=== PATIENT | female | born 1990 | race African-American/Black ===

== ENCOUNTER 2019-04-16 20:14 | Emergency (ER) | payer OTHER ==
[~2019-04-16] VITALS: Ht 170.2 cm; Wt 104.3 kg
--- NOTE | 2019-04-16 20:30 | NUR ---
PT PRESENTED TO THE ER WITH A C/O RT HIP/PELVIC PAIN X 1 DAY. PT IS UNDERGOING PT FOR HER RT SHOULDER AND L KNEE. PT RECEIVED PRP INJECTIONS IN THE LT KNEE TODAY. PT IS AA&O X3. PT TAKES OXICODONE FOR PAIN.
[2019-04-16 20:48] LABS: BASOPHILS % (AUTO) 0.6 % (0.0-2.0); EOSINOPHILS % (AUTO) 1.7 % (0.0-6.0); HEMATOCRIT 39 % (33-45); HEMOGLOBIN 12.9 g/dL (11.5-14.8); LYMPHOCYTES # (AUTO) 1.3 /CMM (0.8-4.8); LYMPHOCYTES % (AUTO) 21.2 % (20.0-44.0); MEAN CORPUSCULAR HGB CONC 33 g/dl (31.0-36.0); MEAN CORPUSCULAR VOLUME 89 fL (82-100); MONOCYTES # (AUTO) 0.9 /CMM (0.1-1.30); MONOCYTES % (AUTO) 14.4 % (2.0-12.0); NEUTROPHILS # (AUTO) 3.9 /CMM (1.8-8.9); NEUTROPHILS % (AUTO) 62.1 % (43.0-81.0); PLATELET COUNT (AUTO) 221 /CMM (150-450); RED BLOOD CELL COUNT(AUTO) 4.35 MIL/uL (4.0-5.2); WHITE BLOOD COUNT (AUTO) 6.3 K/uL (4.3-11.0)
--- NOTE | 2019-04-16 21:20 | NUR ---
URINE SAMPLE OBTAINED AND SENT TO LAB.
[2019-04-16 21:26] LABS: APPEARANCE,URINE Clear (CLEAR); BILIRUBIN,URINE Negative (NEGATIVE); BLOOD, URINE Negative Ery/uL (NEGATIVE); COLOR,URINE Yellow (YELLOW); KETONES,URINE Trace (NEGATIVE); LEUKOCYTE ESTERASE ,URINE Negative (NEGATIVE); NITRITE, URINE Negative (NEGATIVE); PROTEIN,URINE Negative (NEGATIVE); UGLUCOSE Negative (NEGATIVE); UROBILINOGEN,URINE 0.2 EU/dL (0.2)
[2019-04-16 21:37] LABS: ALBUMIN 3.3 g/dL (3.4-5.0); BILIRUBIN,TOTAL 0.2 mg/dL (0.2-1.0); CALCIUM, SERUM 9.2 mg/dL (8.5-10.1); CREATININE 0.9 mg/dL (0.6-1.3); POTASSIUM 3.7 mmol/L (3.5-5.1); TOTAL PROTEIN, SERUM 7.2 g/dL (6.4-8.2)
--- NOTE | 2019-04-16 21:40 | NUR ---
CALLED RADIOLOGY RE: CT.
--- NOTE | 2019-04-16 22:34 | NUR ---
CALLING SHARON RE: READ
--- NOTE | 2019-04-16 22:43 | NUR ---
CT RESULTED. DR NEWBY NOTIFIED.
--- NOTE | 2019-04-16 22:45 | NUR ---
Patient discharged to home in stable condition. Written and verbal after care instructions given. Patient verbalizes understanding of instruction AND RX. PT AMBULATED OUT WITH A SLIGHT LIMP. VSS.
[2019-04-16 23:04] VITALS: BP 132/87
== END 2019-04-16 23:04 | disposition home or self-care (01) ==
LOC: ER 20:17 → EDBD 20:17 → ER 23:04
DX: R10.31 Right lower quadrant pain (principal); Z98.890 Other specified postprocedural states
CPT/HCPCS: 36415; 80048-TC; 80076-TC; 81000-TC; 83690-TC; 84702-TC; 84703-TC; 85025-TC

== ENCOUNTER 2019-07-02 21:31 | Emergency (ER) | payer BC, OTHER ==
[~2019-07-02] VITALS: Ht 170.2 cm; Wt 104.3 kg
--- NOTE | 2019-07-02 22:30 | NUR ---
PT AAOX4. BIBSELF C/O PALPITATIONS S/P EATING 20MG THC/CBD GUMMY CANDIES X2.5HR DIRECTOR SAFETY COUNCIL. PT DENIES CP. PLACED ON MONITOR AND PULSE OX. VSS.
--- NOTE | 2019-07-02 23:52 | NUR ---
Patient discharged to home in stable condition. Written and verbal after care instructions given. Patient verbalizes understanding of instruction. Pt denies pain. VSS. No acute distress noted. Pt ambulated with steady gait.
[2019-07-02 23:53] VITALS: BP 112/72
== END 2019-07-02 23:54 | disposition home or self-care (01) ==
LOC: ER 21:33
DX: F12.90 Cannabis use, unspecified, uncomplicated (principal); G47.00 Insomnia, unspecified; R00.2 Palpitations; Z98.890 Other specified postprocedural states

== ENCOUNTER 2021-02-21 10:59 | Emergency (ER) | payer BC ==
[~2021-02-21] VITALS: Ht 170.2 cm; Wt 99.8 kg
[2021-02-21 11:32] VITALS: BP 130/76
[2021-02-21 12:45] LABS: BASOPHILS % (AUTO) 0.8 % (0.0-2.0); EOSINOPHILS % (AUTO) 1.7 % (0.0-6.0); HEMATOCRIT 41 % (33-45); HEMOGLOBIN 13.4 g/dL (11.5-14.8); LYMPHOCYTES # (AUTO) 1.7 K/uL (0.8-4.8); LYMPHOCYTES % (AUTO) 27.8 % (20.0-44.0); MEAN CORPUSCULAR HGB CONC 33 g/dl (31.0-36.0); MEAN CORPUSCULAR VOLUME 89 fL (82-100); MONOCYTES # (AUTO) 0.5 K/uL (0.1-1.30); MONOCYTES % (AUTO) 8.3 % (2.0-12.0); NEUTROPHILS # (AUTO) 3.6 K/uL (1.8-8.9); NEUTROPHILS % (AUTO) 61.4 % (43.0-81.0); PLATELET COUNT (AUTO) 241 K/uL (150-450); RED BLOOD CELL COUNT(AUTO) 4.57 MIL/uL (4.0-5.2); WHITE BLOOD COUNT (AUTO) 5.9 K/uL (4.3-11.0)
[2021-02-21 12:50] LABS: CALCIUM, SERUM 9.1 mg/dL (8.5-10.1); CREATININE 0.9 mg/dL (0.6-1.3)
[2021-02-21] MEDS ORDERED: LIDO1ADH82 EXT (13:16)
--- NOTE | 2021-02-21 13:26 | NUR ---
Patient discharged to home in stable condition. Written and verbal after care instructions given. Patient verbalizes understanding of instruction.
== END 2021-02-21 13:26 | disposition home or self-care (01) ==
LOC: ER 10:59
DX: L81.9 Disorder of pigmentation, unspecified (principal); M25.561 Pain in right knee; M25.562 Pain in left knee; F12.90 Cannabis use, unspecified, uncomplicated; Z98.890 Other specified postprocedural states
CPT/HCPCS: 36415; 80048-TC; 85025-TC

== ENCOUNTER 2022-06-10 10:34 | Emergency (ER) | payer BC ==
[~2022-06-10] VITALS: Ht 170.2 cm; Wt 113.4 kg
[~2022-06-10 10:34] MED LIST: LIDO1ADH82 EXT
[2022-06-10 11:02] VITALS: BP 129/82
[2022-06-10] MEDS ORDERED: ONDANSETRON 4 MG TAB.RAPDIS SL ONE (11:30)
[2022-06-10] MEDS ORDERED: BUPRENORPHINE HCL 2 MG TAB.SUBL SL ONE (11:30)
[2022-06-10] MEDS ORDERED: PERM60CR4 TP (11:37)
--- NOTE | 2022-06-10 11:45 | NUR ---
Patient discharged to home in stable condition. Written and verbal after care instructions given. Patient verbalizes understanding of instruction.
== END 2022-06-10 11:44 | disposition home or self-care (01) ==
LOC: ER 11:20
DX: B86 Scabies (principal)